=== PATIENT | male | born 1985 | race Caucasian/White ===

== ENCOUNTER 2018-01-22 10:09 | Outpatient (CLI) | payer OTHER ==
[2018-01-22] MEDS ORDERED: IOTHALAMATE MEGLUMINE 50 ML VIAL ONE ×2 (10:26→11:19)
[2018-01-22] MEDS ORDERED: GADOPENTETATE DIMEGLUMINE 5 ML VIAL IVP ONE ×4 (10:26→13:00)
[2018-01-22] MEDS ORDERED: IOTHALAMATE MEGLUMINE 50 ML VIAL IVP ONE ×2 (11:26→13:00)
[2018-01-22] MEDS ORDERED: BUFFERED LIDOCAINE 10 ML SYRINGE IU ONE ×2 (11:26→13:00)
--- NOTE | 2018-01-22 12:59 | XRAY Report ---
Reason: SHOULDER PAIN Procedure Date: 01/22/2018 Accession Number: [id number] / [id number] Procedure: FL - Arthrogram Needle Placement CPT Code: FULL RESULT: EXAM: RIGHT SHOULDER ARTHROGRAPHIC INJECTION WITH FLUOROSCOPIC GUIDANCE EXAM DATE: 01/22/2018 11:05 AM. CLINICAL HISTORY: SHOULDER PAIN. COMPARISON: None. TECHNIQUE: The risks, benefits, and alternatives of the procedure were discussed with the patient. All questions were answered. Written and verbal consent were obtained. The right glenohumeral joint was marked under fluoroscopy and prepped and draped in a sterile manner. Local anesthesia was performed with 1% lidocaine. A 22-gauge needle was then inserted into the glenohumeral joint. 10 mL of a solution containing 50% 1% lidocaine, 50% iodinated contrast, and a 1:200 dilution of gadolinium contrast was then injected. The needle was removed without immediate complication. Other: None. Fluoroscopy Time: 1 minute 14 seconds. Number of Images: 1. FINDINGS: Bones and joints: No fracture or subluxation. Injection: Fluoroscopic images demonstrate needle placement and contrast in the glenohumeral joint. No contrast extravasation outside of the glenohumeral joint. IMPRESSION: Successful fluoroscopically guided arthrographic injection of the right shoulder. [facility]
--- NOTE | 2018-01-22 13:01 | XRAY Report ---
Reason: PAIN IN SHOULDER Procedure Date: 01/22/2018 Accession Number: [id number] / [id number] Procedure: FL - Arthrogram Needle Placement CPT Code: FULL RESULT: EXAM: LEFT SHOULDER ARTHROGRAPHIC INJECTION WITH FLUOROSCOPIC GUIDANCE EXAM DATE: 01/22/2018 12:26 PM. CLINICAL HISTORY: PAIN IN SHOULDER. COMPARISON: None. TECHNIQUE: The risks, benefits, and alternatives of the procedure were discussed with the patient. All questions were answered. Written and verbal consent were obtained. The left glenohumeral joint was marked under fluoroscopy and prepped and draped in a sterile manner. Local anesthesia was performed with 1% lidocaine. A 22-gauge needle was then inserted into the glenohumeral joint. 10 mL of a solution containing 50% 1% lidocaine, 50% iodinated contrast, and a 1:200 dilution of gadolinium contrast was then injected. The needle was removed without immediate complication. Other: None. Fluoroscopy Time: 1 minute 50 seconds. Number of Images: 1. FINDINGS: Bones and joints: No fracture or subluxation. Injection: Fluoroscopic images demonstrate needle placement and contrast in the left glenohumeral joint. No contrast extravasation outside of the glenohumeral joint. IMPRESSION: Successful fluoroscopically guided arthrographic injection of the left shoulder. [facility]
--- NOTE | 2018-01-22 14:16 | MRI Report ---
Reason: PAIN IN SHOULDER Procedure Date: 01/22/2018 Accession Number: [id number] / [id number] Procedure: MRI - Arthrogram Shoulder LT CPT Code: FULL RESULT: EXAM: LEFT SHOULDER MRI ARTHROGRAM WITH CONTRAST EXAM DATE: 01/22/2018 12:17 PM. CLINICAL HISTORY: PAIN IN SHOULDER. COMPARISON: None. TECHNIQUE: Multiplanar, multisequence T1-weighted and fluid-sensitive sequences of the shoulder after an arthrographic injection of dilute gadolinium, dictated under a separate exam. Other: None. FINDINGS: Rotator cuff: Small amount of patchy edema involving the distal supraspinatus. No rotator cuff tear identified. No rotator cuff muscle atrophy or fatty replacement. Long head biceps tendon: Intact demonstrating normal course, signal and morphology. Labrum: Intact. No tear is identified. Bones and articular surfaces: No significant articular cartilage defects are seen. Acromioclavicular joint: Normal appearance. Type II acromion. IMPRESSION: 1. Minimal supraspinatus tendinosis. 2. Otherwise normal shoulder MR arthrogram. [facility] MUSCULOSKELETAL RADIOLOGY SECTION
--- NOTE | 2018-01-22 16:01 | MRI Report ---
Reason: SHOULDER PAIN Procedure Date: 01/22/2018 Accession Number: [id number] / [id number] Procedure: MRI - Arthrogram Shoulder RT CPT Code: FULL RESULT: EXAM: RIGHT SHOULDER MRI ARTHROGRAM WITH CONTRAST EXAM DATE: 01/22/2018 11:20 AM. CLINICAL HISTORY: Shoulder pain. COMPARISON: None. TECHNIQUE: Multiplanar, multisequence T1-weighted and fluid-sensitive sequences of the shoulder after an arthrographic injection of dilute gadolinium, dictated under a separate exam. Other: None. FINDINGS: Acromioclavicular Region: The acromion is type II. The acromioclavicular joint is unremarkable. The coracoacromial and coracoclavicular ligaments are intact. There is no contrast or fluid in the subacromial/subdeltoid bursa. Glenohumeral Region: No subluxation. No loose bodies. The articular cartilage is unremarkable. The glenohumeral ligaments and joint capsule are unremarkable. Bone Marrow: No fracture, marrow edema or bone lesions. Labrum: The labrum is unremarkable. Biceps Tendon: The long head of the biceps tendon and biceps darien are intact. Musculature/Rotator Cuff: The subscapularis, supraspinatus, and teres minor tendons are intact. There is minimal tendinosis of the infraspinatus tendon. No edema or fatty atrophy. Other: The subcutaneous tissues are unremarkable. IMPRESSION: Minimal infraspinatus tendinosis. [facility] MUSCULOSKELETAL RADIOLOGY SECTION
== END 2018-01-22 10:10 | disposition home or self-care (01) ==
LOC: DI 10:09
PROVIDERS: ATTEND General Practice
DX: M75.82 Other shoulder lesions, left shoulder (principal); M75.81 Other shoulder lesions, right shoulder
CPT/HCPCS: 23350; 73222; 77002; Q9961

== ENCOUNTER 2018-09-04 11:19 | Emergency (ER) | payer OTHER ==
[2018-09-04 12:09] LABS: BASOPHILS # (AUTO) 0.1 10^3/uL (0.0-0.1); BASOPHILS % (AUTO) 0.9 %; EOSINOPHILS # (AUTO) 0.3 10^3/uL (0.0-0.7); EOSINOPHILS % (AUTO) 4.4 %; HGB - HEMOGLOBIN 14.6 g/dL (14.0-18.0); LYMPHOCYTES # (AUTO) 2.8 10^3/uL (1.5-3.5); LYMPHOCYTES % (AUTO) 39.8 %; MEAN CORPUSCULAR HEMOGLOBIN 28.6 pg (27.0-31.0); MEAN CORPUSCULAR VOLUME 84.3 fL (80.0-94.0); MEAN PLATELET VOLUME 9.1 fL (7.4-11.4); MONOCYTES # (AUTO) 0.5 10^3/uL (0.0-1.0); MONOCYTES % (AUTO) 6.9 %; NEUTROPHILS # (AUTO) 3.4 10^3/uL (1.5-6.6); PLT - PLATELET COUNT 199 10^3/uL (130-450); RED BLOOD COUNT 5.09 10^6/uL (4.70-6.10); RED CELL DISTRIBUTION WIDTH 12.5 % (12.0-15.0); WHITE BLOOD COUNT 7.1 x10^3/uL (4.8-10.8)
[2018-09-04 12:23] LABS: ALBUMIN 4.5 g/dL (3.2-5.5); ALBUMIN/GLOBULIN RATIO 1.4 (1.0-2.2); BILIRUBIN,TOTAL 0.7 mg/dL (0.2-1.0); CALCIUM 9.5 mg/dL (8.5-10.3); CREATININE 0.9 mg/dL (0.6-1.2); TOTAL PROTEIN 7.7 g/dL (6.7-8.2)
--- NOTE | 2018-09-04 12:35 | XRAY Report ---
Reason: chest pain, light headed Procedure Date: 09/04/2018 Accession Number: [id number] / [id number] Procedure: XR - Chest 2 View X-Ray CPT Code: 54412 FULL RESULT: EXAM: CHEST RADIOGRAPHY EXAM DATE: 09/04/2018 11:57 AM. CLINICAL HISTORY: Chest pain, light headed. COMPARISON: None. TECHNIQUE: 2 views. FINDINGS: Lungs/Pleura: No focal airspace opacities. No pleural effusion or pneumothorax. Mediastinum: Cardiac silhouette is at the upper limits of normal for size. Mediastinal contour and pulmonary vasculature are unremarkable. Other: None. IMPRESSION: 1. Borderline enlargement of the cardiac silhouette. 2. Otherwise no acute cardiopulmonary abnormality. [facility]
--- NOTE | 2018-09-04 13:06 | ED Physician Documentation ---
PD HPI CHEST PAIN - Stated complaint Stated Complaint: CHEST PX - Chief complaint Chief Complaint: General - History obtained from History obtained from: Patient - History of Present Illness Timing - onset: How many weeks ago (2) Timing - onset during: Rest Timing - duration: Weeks (2) Timing - details: Gradual onset, Still present Quality: Pressure, Sharp Location: Substernal, Right chest Radiation: No: Jaw, Neck, Back, Abdominal, Left upper extremity, Right upper extremity Improved by: Rest Associated symptoms: Feeling faint / dizzy. No: Shortness of air, Diaphoresis, Nausea, Vomiting, General Weakness, Palpitations, Cough Similar symptoms before: Has not had sx before Recently seen: Not recently seen - Additional information Additional information: Previously well 33-year-old male who has been deployed to [facility] had to come home early because his was having some issues with labor. He developed some pain in the right chest about a week before he left to travel and this is a nonmodifiable chest pain on the right side of the low intensity. He has indicated that today he is noted that when he eats food he feels that the food passes by something that has caused this pain. Review of Systems Constitutional: denies: Fever, Chills Eyes: denies: Decreased vision Ears: denies: Ear pain Nose: denies: Rhinorrhea / runny nose, Reviewed and negative Throat: denies: Sore throat Cardiac: reports: Chest pain / pressure. denies: Palpitations, Pedal edema, Calf pain Respiratory: denies: Dyspnea, Cough GI: denies: Abdominal Pain, Nausea, Vomiting : denies: Dysuria, Frequency PD PAST MEDICAL HISTORY - Past Medical History Past Medical History: No - Past Surgical History Past Surgical History: Yes - Present Medications Home Medications: Ambulatory Orders Medication Instructions Recorded Confirmed No Known Home Medications 09/04/18 09/04/18 - Allergies Allergies/Adverse Reactions: Allergies Allergy/AdvReac Type Severity Reaction Status Date / Time No Known Drug Allergies Allergy Verified 09/04/18 11:32 - Social History Does the pt smoke?: No Smoking Status: Former smoker Does the pt drink ETOH?: Yes Does the pt have substance abuse?: No - Immunizations Immunizations are current?: Yes PD ED PE NORMAL - General General: Alert and oriented X 3, No acute distress, Well developed/nourished - HEENT HEENT: Atraumatic, PERRL, EOMI - Neck Neck: Supple, no meningeal sign, No bony TTP - Cardiac Cardiac: RRR, No murmur - Respiratory Respiratory: No respiratory distress, Clear bilaterally, Other (no chest wall tenderness) - Abdomen Abdomen: Soft, Non tender - Back Back: No CVA TTP, No spinal TTP - Derm Derm: Normal color, Warm and dry, No rash - Extremities Extremities: No deformity, No edema - Neuro Neuro: Alert and oriented X 3, youth court judge 2-12 intact, No motor deficit, No sensory deficit, Normal speech Eye Opening: Spontaneous Motor: Obeys Commands Verbal: Oriented GCS Score: 15 - Psych Psych: Normal mood, Normal affect Results - Vitals Vitals: Vital Signs - 24 hr 09/04/18 09/04/18 11:28 13:05 Temperature 36.9 C Heart Rate 55 L 52 L Respiratory 14 18 Rate Blood Pressure 134/74 H 115/78 O2 Saturation 100 99 Oxygen O2 Source Room air - EKG (time done) 1133 Rate: Rate (enter#) (57) Ischemia: ST elevation c/w repol Compare to prior EKG: Old EKG unavailable Computer interpretation: Agree with computer - Labs Labs: Laboratory Tests 09/04/18 09/04/18 09/04/18 12:03 12:03 12:03 WBC 7.1 RBC 5.09 Hgb 14.6 Hct 42.9 MCV 84.3 MCH 28.6 MCHC 34.0 RDW 12.5 Plt Count 199 MPV 9.1 Neut # (Auto) 3.4 Lymph # (Auto) 2.8 Otero # (Auto) 0.5 Eos # (Auto) 0.3 Baso # (Auto) 0.1 Absolute Nucleated RBC 0.00 Nucleated RBC % 0.0 D-Dimer Sodium 140 Potassium 4.2 Chloride 104 Carbon Dioxide 25 Anion Gap 11.0 BUN 22 H Creatinine 0.9 Estimated GFR (MDRD) 98 Glucose 104 H Calcium 9.5 Total Bilirubin 0.7 AST 18 ALT 18 Alkaline Phosphatase 57 Troponin I < 0.04 Total Protein 7.7 Albumin 4.5 Globulin 3.2 Albumin/Globulin Ratio 1.4 Lipase 36 09/04/18 12:03 WBC RBC Hgb Hct MCV MCH MCHC RDW Plt Count MPV Neut # (Auto) Lymph # (Auto) Otero # (Auto) Eos # (Auto) Baso # (Auto) Absolute Nucleated RBC Nucleated RBC % D-Dimer < 200.0 L Sodium Potassium Chloride Carbon Dioxide Anion Gap BUN Creatinine Estimated GFR (MDRD) Glucose Calcium Total Bilirubin AST ALT Alkaline Phosphatase Troponin I Total Protein Albumin Globulin Albumin/Globulin Ratio Lipase - Rads (name of study) chest 2 veiw Radiology: Prelim report reviewed (Impression: 1. Borderline enlargement of the cardiac silhouette. 2 Otherwise no acute cardiopulmonary abnormality.), EMP read indepedently, See rad report PD MEDICAL DECISION MAKING - ED course Complexity details: reviewed old records, reviewed results, re-evaluated patient, considered differential, d/w patient, d/w family ED course: 33 y/o male with low grade pain in the right chest has normal appearing diagnostics and he does not get improvement with the use of a GI cocktail. He has been under a lot of stress with his in pre-term labor and he has had to return home from deployment early. His pain started before he traveled and he is not tachy or hypoxic. His d-dimer is negative. He is diagnosed with atypical chest pain and I suspect this is related to his level of stress. Departure - Departure Disposition: 01 Home, Self Care Clinical Impression: Atypical chest pain, Stress reaction Condition: Stable Instructions: ED Chest Pain Atypical Unkn Cause, ED Stress React Follow-Up: AMBER BENAVIDEZ III, MD [Primary Care Provider] -
[2018-09-04 13:08] VITALS: BP 115/78
[2018-09-04] MEDS ORDERED: LIDOCAINE VISCOUS 2% 15 ML UDC MM STA (13:28)
[2018-09-04] MEDS ORDERED: MAG HYDROX/AL HYDROX/SIMETH 30 ML UDC PO STA (13:29)
== END 2018-09-04 14:28 | disposition home or self-care (01) ==
LOC: ED 11:19
DX: R07.89 Other chest pain (principal); F43.9 Reaction to severe stress, unspecified; Z87.891 Personal history of nicotine dependence
CPT/HCPCS: 36415; 71046; 80053; 83690; 84484; 85025; 85379; 93005; 99283; A9270